=== PATIENT | female | born 1985 | race Two or more races ===

== ENCOUNTER 2021-10-11 07:11 | Outpatient (CLI) | payer OTHER ==
[~2021-10-11 07:11] MED LIST: ADVAIR 2501 DISK W/1 IH; CIPRO500 MG PO; TORADOL10 MG PO
== END 2021-10-11 16:12 | disposition home or self-care (01) ==
LOC: LAB 07:11
DX: E28.9 Ovarian dysfunction, unspecified (principal); N91.2 Amenorrhea, unspecified